=== PATIENT | male | born 1955 | race Caucasian/White ===

== ENCOUNTER 2024-05-24 07:37 | Inpatient (IN) | payer MEDICAID, MEDICARE ==
[2024-05-24] MEDS: Albuterol/Ipratropium 3.0-0.5 MG/3 ML Neb Soln NEB ONE (07:55)
[2024-05-24] MEDS: Furosemide 40 MG/4 ML VIAL IVPUSH ONE (08:14)
[2024-05-24] MEDS: methylPREDNISolone Sodium Succinate 125 MG/2 ML SDV IVPUSH STA (08:15)
[2024-05-24 08:30] LABS: BASOPHILS ABSOLUTE AUTO 0.01 10^3/uL (0.00-0.50); BASOPHILS PERCENT AUTO 0.1 % (0-1); EOSINOPHILS ABSOLUTE AUTO 0.03 10^3/uL (0.00-1.50); EOSINOPHILS PERCENT AUTO 0.3 % (0-6); HEMOGLOBIN 15.7 g/dL (14.0-18.0); IMMATURE GRAN ABSOLUTE AUTO 0.02 10^3/uL (0.00-0.49); IMMATURE GRAN PERCENT AUTO 0.2 % (0.0-4.9); LYMPHOCYTES ABSOLUTE AUTO 0.77 10^3/uL (0.60-5.00); LYMPHOCYTES PERCENT AUTO 6.5 % (24-44); MEAN CORPUSCULAR HEMOGLOBIN 30.4 pg (27.0-32.0); MEAN CORPUSCULAR HGB CONC 34.1 g/dL (32.0-36.0); MEAN CORPUSCULAR VOLUME 89.1 fL (83.0-97.0); MONOCYTES ABSOLUTE AUTO 0.32 10^3/uL (0.00-1.50); MONOCYTES PERCENT AUTO 2.7 % (0-10); NEUTROPHILS ABSOLUTE AUTO 10.67 x10^3/uL (1.80-8.00); NEUTROPHILS PERCENT AUTO 90.2 % (41-71); PLATELET COUNT,PLT 225 10^3/uL (150-400); RED BLOOD CELL COUNT 5.16 x10^6/uL (4.50-6.00); WHITE BLOOD CELL COUNT,WBC 11.8 10^3/uL (4.0-11.0)
[2024-05-24] MEDS: Piperacillin/Tazobactam 4.5 GM in Sodium Chloride 0.9% 100 ML IV ONE (08:33)
[2024-05-24 08:50] LABS: ALANINE AMINOTRANSFERASE,ALT 31 U/L (12-78); ALBUMIN 3.7 g/dL (3.4-5.0); ALKALINE PHOSPHATASE 109 U/L (46-116); ASPARTATE AMNIOTRANSFERASE,AST 30 U/L (15-37); BILIRUBIN TOTAL 0.7 mg/dL (0.0-1.0); BLOOD UREA NITROGEN,BUN 11 mg/dL (7-18); CALCIUM 9.6 mg/dL (8.4-10.1); CARBON DIOXIDE,CO2 26 mmol/L (21-32); CHLORIDE,CL 101 mEq/L (98-106); EST CRCL DRUG DOSING (CG) 69.35 mL/min; GLUCOSE RANDOM 123 mg/dL (75-99); MAGNESIUM 0.9 mg/dL (1.8-2.4); POTASSIUM,K 3.5 mEq/L (3.5-5.0); PRO B-TYPE NATRIUR PEPT,BNPPRO 456 pg/mL (0-1000); PROTEIN TOTAL,TP 8.4 g/dL (6.4-8.2); SODIUM,NA 141 mEq/L (136-145)
[2024-05-24 08:58] LABS: C-REACTIVE PROTEIN < 0.50 mg/dL (<=0.50); ESTIMATED GFR 82 mL/min (>=60)
[2024-05-24 09:01] LABS: O2 DELIVERY DEVICE NASAL CANNULA; PCO2 ARTERIAL 30 mm/Hg0 (35-45); PH,ARTERIAL 7.45 (7.35-7.45); PO2 ARTERIAL 60 mm/Hg (80-100)
[2024-05-24 09:02] LABS: BASE EXCESS ARTERIAL -2.7 (-2.0-3.0); BICARBONATE,ARTERIAL 21.2 mm/L (22.0-26.0); O2 SATURATION ARTERIAL 92 % (95-98)
[2024-05-24] MEDS: Magnesium Sulfate/Water 2 GM in Premix Bag 1 BAG IV ONE (09:27)
[2024-05-24] MEDS: Sodium Chloride 0.9% 500 ML IV SCH (09:28)
[2024-05-24 09:33] LABS: APPEARANCE,URINE CLEAR (CLEAR); BILIRUBIN,URINE NEGATIVE (NEGATIVE); COLOR,URINE YELLOW (YELLOW); GLUCOSE,URINE NEGATIVE (NEGATIVE); KETONES,URINE NEGATIVE (NEGATIVE); LEUKOCYTE ESTERASE,URINE NEGATIVE (NEGATIVE); NITRITE,URINE NEGATIVE (NEGATIVE); OCCULT BLOOD,URINE NEGATIVE (NEGATIVE); PROTEIN,URINE NEGATIVE (NEGATIVE); UROBILINOGEN,URINE 0.2 EU/dL (0.2-1.0)
[2024-05-24] MEDS: Iopamidol 755 Mg/ML 100 ML Bottle IVPUSH ONE (09:52)
[2024-05-24] MEDS ORDERED: Polyethylene Glycol 3350 Powder 17 GM Packet PO PRN (11:12)
[2024-05-24] MEDS ORDERED: Ondansetron 4 MG Tab.DIS PO PRN (11:12)
[2024-05-24] MEDS ORDERED: Albuterol 0.083% 2.5 MG/3 ML Neb Soln NEB PRN (11:12)
[2024-05-24] MEDS ORDERED: Ondansetron 4 MG/2 ML SDV IV PRN (11:12)
[2024-05-24] MEDS: Albuterol/Ipratropium 3.0-0.5 MG/3 ML Neb Soln NEB SCH (11:49)
[2024-05-24] MEDS: Piperacillin/Tazobactam 4.5 GM in Sodium Chloride 0.9% 100 ML IV SCH (12:11)
[2024-05-24] MEDS: Acetaminophen 325 MG Tab PO PRN (15:14)
[2024-05-24] MEDS: Enoxaparin 40 MG/0.4 ML Syringe SUBCUT SCH (19:31)
[2024-05-24] MEDS: methylPREDNISolone Sodium Succinate 40 MG/1 ML SDV IVPUSH SCH (19:31)
[2024-05-25] MEDS: Pantoprazole 40 MG Tab.CR PO SCH (06:17)
[2024-05-25] MEDS: methylPREDNISolone Sodium Succinate 40 MG/1 ML SDV ONE (06:47)
[2024-05-25 07:38] LABS: BASOPHILS ABSOLUTE AUTO 0.01 10^3/uL (0.00-0.50); BASOPHILS PERCENT AUTO 0.1 % (0-1); HEMATOCRIT 38.1 % (42.0-52.0); HEMOGLOBIN 13.5 g/dL (14.0-18.0); IMMATURE GRAN ABSOLUTE AUTO 0.11 10^3/uL (0.00-0.49); IMMATURE GRAN PERCENT AUTO 0.6 % (0.0-4.9); LYMPHOCYTES ABSOLUTE AUTO 0.66 10^3/uL (0.60-5.00); LYMPHOCYTES PERCENT AUTO 3.3 % (24-44); MEAN CORPUSCULAR HGB CONC 35.4 g/dL (32.0-36.0); MEAN CORPUSCULAR VOLUME 87.4 fL (83.0-97.0); MONOCYTES ABSOLUTE AUTO 1.67 10^3/uL (0.00-1.50); MONOCYTES PERCENT AUTO 8.4 % (0-10); NEUTROPHILS ABSOLUTE AUTO 17.49 x10^3/uL (1.80-8.00); NEUTROPHILS PERCENT AUTO 87.6 % (41-71); PLATELET COUNT,PLT 213 10^3/uL (150-400); RED BLOOD CELL COUNT 4.36 x10^6/uL (4.50-6.00); WHITE BLOOD CELL COUNT,WBC 19.9 10^3/uL (4.0-11.0)
[2024-05-25] MEDS: Formoterol/Mometasone 200-5 MCG 8.8 GM Inhaler IH SCH (07:56)
[2024-05-25] MEDS: Lisinopril 20 MG Tab PO SCH (07:57)
[2024-05-25] MEDS: atorvaSTATin 20 MG Tab PO SCH (07:57)
[2024-05-25] MEDS: Loratadine 10 MG Tab PO SCH (07:58)
[2024-05-25] MEDS: Docusate Sodium 100 MG Cap PO PRN (20:32)
[2024-05-26 07:59] LABS: HEMATOCRIT 38.3 % (42.0-52.0); HEMOGLOBIN 13.3 g/dL (14.0-18.0); IMMATURE GRAN ABSOLUTE AUTO 0.08 10^3/uL (0.00-0.49); IMMATURE GRAN PERCENT AUTO 0.5 % (0.0-4.9); LYMPHOCYTES ABSOLUTE AUTO 0.72 10^3/uL (0.60-5.00); LYMPHOCYTES PERCENT AUTO 4.1 % (24-44); MEAN CORPUSCULAR HEMOGLOBIN 30.9 pg (27.0-32.0); MEAN CORPUSCULAR HGB CONC 34.7 g/dL (32.0-36.0); MEAN CORPUSCULAR VOLUME 89.1 fL (83.0-97.0); MONOCYTES ABSOLUTE AUTO 1.26 10^3/uL (0.00-1.50); MONOCYTES PERCENT AUTO 7.3 % (0-10); NEUTROPHILS ABSOLUTE AUTO 15.31 x10^3/uL (1.80-8.00); NEUTROPHILS PERCENT AUTO 88.1 % (41-71); PLATELET COUNT,PLT 243 10^3/uL (150-400); WHITE BLOOD CELL COUNT,WBC 17.4 10^3/uL (4.0-11.0)
[2024-05-26 11:23] LABS: CREATININE,POC 0.93 mg/dL (0.51-1.19); POTASSIUM,POC 3.9 mmol/L (3.5-4.5)
== END 2024-05-26 13:03 | disposition home or self-care (01) | DRG 194 ==
LOC: CC.ED 07:37 → CC.MS 09:47 → UNDOADMIN 09:47 → CC.MS 10:37
PROVIDERS: ADMIT Nurse Practitioner; ATTEND Nurse Practitioner
DX: J18.9 Pneumonia, unspecified organism (principal); J45.901 Unspecified asthma with (acute) exacerbation; R09.02 Hypoxemia; Z87.891 Personal history of nicotine dependence
CPT/HCPCS: 36415; 36600; 71046; 71275; 80047; 80048; 80053; 81003; 82803; 83605; 83735; 83880; 84484; 85025; 85379; 86140; 87040; 93005; 94640; 96365; 96367; 96375; 99285-25; A9270-GY; J1650; J1940; J2543; J2919; J3475; J3490; J7040; J7620-GY; Q9967; U0002